=== PATIENT | female | born 1990 | race Caucasian/White ===

== ENCOUNTER 2019-01-11 12:37 | Emergency (ER) | payer OTHER, MEDICAID ==
[~2019-01-11] VITALS: Ht 162.6 cm; Wt 106.1 kg
[~2019-01-11 12:37] MED LIST: COLACE100 MG PO; DARVOCET-N 1001 EACH PO; IBUPROFEN; PEPCID AC20 M1 PO; ZOFRAN ODT4 MG PO; ZOFRAN4 MG PO
[2019-01-11 14:07] VITALS: BP 141/72
== END 2019-01-11 14:07 | disposition home or self-care (01) ==
LOC: M.ERS 12:37
DX: S93.491A Sprain of other ligament of right ankle, initial encounter (principal); W18.39XA Other fall on same level, initial encounter; Y92.89 Other specified places as the place of occurrence of the external cause; Y93.89 Activity, other specified; Y99.8 Other external cause status